=== PATIENT | female | born 1960 | race African-American/Black ===

== ENCOUNTER 2021-09-03 13:21 | Emergency (ER) | payer MEDICARE | END 2021-09-03 14:10 | disposition home or self-care (01) | LOC: NAV ERS 13:21 | DX: U07.1 COVID-19 (principal); E11.9 Type 2 diabetes mellitus without complications; I10 Essential (primary) hypertension; Z79.4 Long term (current) use of insulin; Z79.899 Other long term (current) drug therapy | CPT/HCPCS: 99283 ==